=== PATIENT | female | born 1945 | race Caucasian/White ===

== ENCOUNTER → 2018-03-26 | Outpatient (CLI) | payer MEDICARE ==
--- NOTE | 2018-03-26 15:07 | CT ---
EXAM DESCRIPTION: Abdomen/Pelvis w/wo Contrast CLINICAL HISTORY: 72 years Female, ABD PN COMPARISON: None available. TECHNIQUE: Contiguous 3 mm axial images were obtained from the lung bases to the level of the proximal femora before and after the administration of intravenous contrast. Sagittal and coronal reconstructions were reviewed. FINDINGS: THORAX: The imaged lower thorax demonstrates no gross abnormality. LIVER: A simple cyst is noted at the junction of hepatic segments 4 and 8. The liver otherwise appears normal. GALLBLADDER: Surgically absent. PANCREAS: Appears normal with no cystic or solid lesions. SPLEEN: Normal ADRENAL GLANDS: Normal with no nodules or masses. KIDNEYS: Both kidneys enhance symmetrically with no hydronephrosis or nephrolithiasis or perinephric fluid collections. No focal masses are identified. The visualized ureters appear grossly unremarkable. STOMACH: The stomach is well-distended with no gross abnormality. SMALL BOWEL: The small bowel loops demonstrate variable degrees of distention with no abnormal dilatation or other signs to suggest bowel obstruction. LARGE BOWEL: Moderate to large amount of fecal material is noted, representing constipation. No evidence of free intraperitoneal air or fluid. RETROPERITONEUM: The abdominal aorta is nonaneurysmal with moderate atherosclerosis. The inferior vena cava is normal in size and caliber. No abnormally enlarged retroperitoneal lymph nodes are identified. URINARY BLADDER: The urinary bladder is mildly distended with no gross abnormality. The uterus and ovaries are surgically absent. ADDITIONAL FINDINGS: There is diastasis of the rectus sheath with herniation of colon. However no evidence of bowel obstruction. BONES: Mild degenerative changes are identified in the visualized bones.No evidence of osteophytic or osteoblastic lesions. IMPRESSION: 1. Constipation. 2. No acute process is identified within the abdomen and pelvis. This exam was performed according to our departmental dose-optimization program, which includes automated exposure control, adjustment of the mA and/or kV according to patient size and/or use of iterative reconstruction technique. Electronically signed by: Cristela Rhodes MD 03/26/2018 3:05 PM CDT
== END ==
LOC: LAB.O 11:16
PROVIDERS: ATTEND General Practice
DX: R10.9 Unspecified abdominal pain (principal); K59.00 Constipation, unspecified

== ENCOUNTER 2019-09-15 14:27 | Inpatient (IN) | payer MEDICARE ==
--- NOTE | 2019-09-15 14:39 | ED.PDOC ---
History of Present Illness - General Chief Complaint: Neuro Symptoms/Deficits Time Seen by Provider: 09/15/19 14:38 - History of Present Illness Initial Comments: 74-year-old female on plavix, referred to the ED by clinic today after concern for a reported transient episode of right upper extremity weakness, and noted slurred speech. per friend at the bedside, she found pt on the floor this morning, and notes multiple falls over the last several weeks. pt states she went to clinic to followup on her R thumb pain, which has reported neg xrays but contniue to hurt. she attributes the speech change to her missing dentures, dry mouth. she denies any current focal symptoms at this time, wants to go home but is willing to have eval due to concern of her physician and friend. Allergies/Adverse Reactions: Allergies Penicillins Allergy (Intermediate, Verified 09/15/19 15:36) Codeine Allergy (Verified 10/09/13 09:25) Home Medications: Ambulatory Orders Gabapentin 600 mg PO TID 10/09/13 Levothyroxine Sodium [Synthroid] 150 mcg PO DAILY 10/09/13 Amlodipine Besylate 5 mg PO DAILY 09/15/19 Aspirin [Aspirin Adult Low Dose] 81 mg PO DAILY 09/15/19 Atorvastatin Calcium [Lipitor] 40 mg PO BEDTIME 09/15/19 Carvedilol 12.5 mg PO BID 09/15/19 Clopidogrel Bisulfate [Plavix] 75 mg PO QD 09/15/19 Diazepam [Valium] 5 mg PO BEDTIME 09/15/19 Furosemide [Lasix] 20 mg PO DAILY 09/15/19 Glipizide [Glipizide Xl] 2.5 mg PO DAILY 09/15/19 Losartan Potassium 100 mg PO DAILY 09/15/19 Mirtazapine [Remeron] 15 mg PO BEDTIME 09/15/19 Nitroglycerin 0.4 mg Tab [Nitrostat] 0.4 mg SL PRN 09/15/19 Nitroglycerin Patch 0.4 mg/Hr [Nitro-Dur PATCH 0.4 mg/hour] 0.4 mg TOP QD 09/15/19 Potassium Chloride [K-Tab] 10 meq PO DAILY 09/15/19 Sitagliptin Phosphate [Januvia] 100 mg PO DAILY 09/15/19 Tramadol HCl 50 mg PO PRN 09/15/19 Review of Systems - Review of Systems Review of Systems: 09/15/19 15:31 General: Denies generalized weakness, fever, arthralgia/myalgia HEENT: Denies sore throat, rhinorrhea Cardiovascular: Denies chest pain, palpitations Respiratory: Denies SOB, cough Gastrointestinal: Denies abdominal pain, vomiting, diarrhea : Denies dysuria, frequency Musculoskeletal: Denies extremity pain, extremity swelling Integument: Denies rash, itching Neuro: Denies focal weakness or numbness. does note a transient episode of numbness to arm, unsure of the weakness. Psych: Denies depression, hallucinations. Past Medical History (General) - Patient Medical History Hx Seizures: No Hx Stroke: No Hx Asthma: No Hx of COPD: No Hx Cardiac Disorders: Yes Hx Congestive Heart Failure: No Hx Pacemaker: No Hx Hypertension: Yes Hx Diabetes: No Hx MRSA: No - Social History Hx Alcohol Use: No Hx Substance Use: No Hx Physical Abuse: No Hx Emotional Abuse: No Family Medical History - Family History Mother Living Status: Hx Family;Other: suicide Physical Exam - Physical Exam Comments: General Appearance: Patient is awake and alert. Skin: Warm and dry. No diaphoresis. No rash or other lesions. Head: Normocephalic/atraumatic. Eyes: PERRL, lids, conjunctiva and sclera unremarkable. EOMI intact. ENT: No nasal discharge. Oropharynx. Without erythema, exudate, lesions. dry mucous membranes. speech is slightly thickened, which seemed to improve after a drink of water. Neck: Supple. No LAD. No tenderness. No JVD noted. Respiratory: Normal rate and effort. Breath sounds clear bilaterally. Cardiovascular: Regular rate. Heart sounds normal. No murmur. GI: Abdomen soft, non-distended and non-tender. No rebound/guarding. Bowel sounds normal. Back: No tenderness Musculoskeletal: Extremities- Normal range of motion. No effusion, cyanosis, edema. she has tenderness w/ forced abduction, extension of thumb on R. Neurological: Alert. No facial palsy. Speech clear. Gag intact. No motor deficit, str symmetric. No sensory deficit. Progress - Progress Progress: 09/15/19 16:18 screening labs have returned w elev BUN/Cr. spoke w/ referring MDs office, two weeks ago had BUN/Cr 21/1.[address]/CXR reassuring, have given fluid bolus, will plan maint fluid, UA when able. d/w patient, she is agreeable. d/w admitting service, given extent of renal injury, recommends full admission. - Results/Orders Results/Orders: Vital Signs - 24 hr 09/15/19 09/15/19 14:42 15:30 Temperature 97.3 F L Pulse Rate [ 63 58 L right brachial] Respiratory 18 16 Rate Blood Pressure 90/55 122/82 [right brachial ] O2 Sat by Pulse 94 L 94 L Oximetry 09/15/19 14:59 Telemetry .ONCE Sodium Chloride 0.9% (Flush) [Saline Flush Syringe] 10 ml IV PRN PRN EKG Stat Pulse Ox Stat 09/15/19 15:00 EKG Assessment ONCE Pulse Oximetry Assessment DAILY 09/15/19 16:24 ED Intent to Admit Routine Laboratory Results - last 24 hr 09/15/19 15:13 WBC 5.7 RBC 3.68 L Hgb 10.5 L Hct 32.7 L MCV 88.8 MCH 28.5 MCHC 32.1 L RDW 15.9 H Plt Count 179 MPV 9.1 Absolute Neuts (auto) 3.70 Absolute Lymphs (auto) 1.50 Absolute Monos (auto) 0.30 Absolute Eos (auto) 0.10 Absolute Basos (auto) 0.00 Neutrophils % 64.9 Lymphocytes % 26.4 Monocytes % 6.1 Eosinophils % 2.1 Basophils % 0.5 PT 10.0 INR 1.00 PTT (SP) 23.5 Sodium 141 Potassium 4.0 Chloride 102 Carbon Dioxide 23 Anion Gap 20.0 H BUN 42 H Creatinine 2.37 H BUN/Creatinine Ratio 17.7 Random Glucose 312 H Serum Osmolality 303.6 H Calcium 9.1 Magnesium 2.1 Creatine Kinase 42 CK-MB (CK-2) 1.0 CK-MB (CK-2) % Not Reportable Troponin I < 0.02 B-Natriuretic Peptide 5.5 CT Head, no acute abnl CXR no acute abnl - EKG/XRAY/CT EKG: Sinus - rate 62, nonspecific ST T wave Chg Comments: nl axis, intervals CT Ordered: Yes - head, negative - Consult/PCP Consult/PCP: Dr. Haywood Consult Reason/Comments: discussed baseline renal function Departure - Departure Clinical Impression: Acute kidney injury, Fall at home Time of Disposition: 16:10 Disposition: Admit Patient Condition: Fair Referrals: Phil Haywood MD [Primary Care Provider] - 1-2 Weeks Home Medications: Ambulatory Orders Gabapentin 600 mg PO TID 10/09/13 Levothyroxine Sodium [Synthroid] 150 mcg PO DAILY 10/09/13 Amlodipine Besylate 5 mg PO DAILY 09/15/19 Aspirin [Aspirin Adult Low Dose] 81 mg PO DAILY 09/15/19 Atorvastatin Calcium [Lipitor] 40 mg PO BEDTIME 09/15/19 Carvedilol 12.5 mg PO BID 09/15/19 Clopidogrel Bisulfate [Plavix] 75 mg PO QD 09/15/19 Diazepam [Valium] 5 mg PO BEDTIME 09/15/19 Furosemide [Lasix] 20 mg PO DAILY 09/15/19 Glipizide [Glipizide Xl] 2.5 mg PO DAILY 09/15/19 Losartan Potassium 100 mg PO DAILY 09/15/19 Mirtazapine [Remeron] 15 mg PO BEDTIME 09/15/19 Nitroglycerin 0.4 mg Tab [Nitrostat] 0.4 mg SL PRN 09/15/19 Nitroglycerin Patch 0.4 mg/Hr [Nitro-Dur PATCH 0.4 mg/hour] 0.4 mg TOP QD 09/15/19 Potassium Chloride [K-Tab] 10 meq PO DAILY 09/15/19 Sitagliptin Phosphate [Januvia] 100 mg PO DAILY 09/15/19 Tramadol HCl 50 mg PO PRN 09/15/19 Comments: Waldemar Babcock MD Emergency Medicine #[id number] Decision To Admit - Decistion To Admit Decision to Admit Reason: Admit from ER - Acute Kidney Injury Decision to Admit Date: 09/15/19 Decision to Admit Time: 16:10
[2019-09-15] MEDS ORDERED: SODIUM CHLORIDE 0.9% (FLUSH) 10 ML SYG IV PRN ×2 (14:59→18:02)
[2019-09-15] MEDS ORDERED: SODIUM CHLORIDE 0.9% 500ML 500 ML IVS ONE (15:02)
--- NOTE | 2019-09-15 15:25 | RAD ---
EXAM DESCRIPTION: Chest,1 View: CR/DR/XR. CLINICAL HISTORY: 74 years Female falls, dizzy COMPARISON: One view portable chest September 2013. TECHNIQUE: ONE VIEW PORTABLE. AP 1514 hours, upright position. FINDINGS: Moderate lung expansion. Stable densities in the bilateral bases. No new consolidation. No pleural effusion or pneumothorax. Cardiopulmonary vascular structures and mediastinal silhouette are unremarkable. Large body habitus. IMPRESSION: Mild to moderate lung volumes with stable densities in the left lung base since September 2013. No radiographic evidence of acute cardiopulmonary disease. Electronically signed by: Andrew Vasquez MD 09/15/2019 3:23 PM [facility]
--- NOTE | 2019-09-15 15:39 | CT ---
EXAM DESCRIPTION: Head CLINICAL HISTORY: multiple falls, on plavix, brief RUE, speech norman COMPARISON: None available TECHNIQUE: Noncontrast head CT was performed with routine protocol. FINDINGS: Normal benson-white matter differentiation. Ventricles and sulci are normal for age. No high density hemorrhage, focal edema or shift of the midline. No sulcal effacement. Normal orbital contents. Basilar cisterns appear clear. Intact calvarium with no fracture or lytic lesion. Normal aeration of tympanic cavities and mastoid air cells. No fluid levels in the paranasal sinuses. Skull base appears intact. Symmetrical internal auditory canals. IMPRESSION: No acute intracranial pathologic process. This exam was performed according to our departmental dose-optimization program, which includes automated exposure control, adjustment of the mA and/or kV according to patient size and/or use of iterative reconstruction technique. Total DLP equals 859.97 mGycm. Electronically signed by: Rj Vann MD 09/15/2019 3:37 PM [facility]
--- NOTE | 2019-09-15 17:01 | HP ---
SUPERVISING PHYSICIAN: Catrachito Bermudez MD CHIEF COMPLAINT: Neuro symptoms. HISTORY OF PRESENT ILLNESS: This is a 74-year-old patient who lives in [place]. She had been having some numbness in her right thumb and right index finger. She had seen her primary care physician, Dr. Haywood, about that. He told her to come back if she did not have any improvement. Today, she was taking a bath getting ready for her appointment and after she got out, she said she slipped to the floor. She does not think she passed out, but she does not remember much of the fall, although she did deny any traumatic injury or hitting her head. She called her friend and while they were en route to [place], she called Dr. Haywood's office and Dr. Haywood recommended she go to the Emergency Room. In the ER, initially they thought she was having stroke-like symptoms, but she did not have any weakness on either side. There was no slurred speech although she did have a very dry oropharynx and oral mucous membranes. Her initial vital signs were temperature 97.3, heart rate 63, blood pressure 90/55, respiratory rate 18, O2 saturation 94% on room air. Labs showed WBC 5.7, hemoglobin 10.5, hematocrit 32.7. Sodium 141, potassium 4, chloride 102, cardiac 23, anion gap 20, BUN 42, creatinine 2.37. Her baseline creatinine is 0.9 to 1. Glucose 291. Serum osmolality 303.6. BNP 5.5. She was given some fluids and her blood pressure improved to 122/82. Head CT was done and showed no acute intracranial pathologic process. Chest x-ray showed mild to moderate lung volume with stable densities in the left lung base from September 2013. No radiographic evidence of acute cardiopulmonary disease. I was called for admission for acute kidney injury with severe dehydration. PAST MEDICAL HISTORY: 1. Hypertension. 2. Hypothyroidism. 3. Coronary artery disease. 4. Hyperlipidemia. 5. Diabetes mellitus. 6. Breast cancer status post bilateral mastectomy. PAST SURGICAL HISTORY: 1. Cardiac stents. 2. Bowel resection times 3. 3. Cholecystectomy. 4. Hysterectomy. 5. Bilateral knee replacements. 6. Bilateral mastectomy. CURRENT MEDICATIONS: Per the EMR and awaiting verification. ALLERGIES: CODEINE, PENICILLIN. SOCIAL HISTORY: The patient denies any tobacco, alcohol or illicit drug use. REVIEW OF SYSTEMS: GENERAL: Negative for fever, fatigue or weight changes. HEENT: Negative for sinus symptoms, ear pain, vision changes or sore throat. RESPIRATORY: Negative for wheezing, coughing or shortness of breath. CARDIAC: Positive for substernal chest pain that does not radiate and is not exacerbated by any exertion. Negative for palpitations or tachycardia. GASTROINTESTINAL: Positive for some nausea. Negative for vomiting, diarrhea, constipation. GENITOURINARY: Negative for hematuria, dysuria or polyuria. SKIN: Negative for lesions or rashes. NEUROLOGIC: Positive for dizziness and history of some vertigo for many years. Negative for headache or seizures. PHYSICAL EXAMINATION: VITAL SIGNS: Temperature 98.4. Heart rate 59. Blood pressure 126/84. Respiratory rate 16. O2 saturation 96% on room air. GENERAL: This is a 74-year-old female patient lying in her hospital bed. She is in no acute distress. HEENT: Normocephalic, atraumatic. Pupils are equal and reactive. Oropharynx is clear. Oral mucous membranes are very dry. NECK: Supple without mass. RESPIRATORY: Essentially clear to auscultation bilaterally. CHEST: There is equal rise and fall of the chest with inspiration and expiration. CARDIOVASCULAR: Regular rate and rhythm. GASTROINTESTINAL: Abdomen is soft, nondistended, nontender. Bowel sounds are positive. EXTREMITIES: No cyanosis, clubbing or edema. NEUROLOGIC: Awake, alert and oriented times three. Cranial nerves II-XII are grossly intact as examined. There are no focal deficits. SKIN: Warm and dry. LABORATORY: Labs and films are as per history of present illness. IMPRESSION: 1. Acute kidney injury. Her admitting creatinine was 2.37. Her baseline creatinine is about 0.9. 2. Dehydration. 3. Questionable altered mental status. 4. Same-level fall after her bath with no obvious trauma. She has a history of vertigo and questionable loss of consciousness. 5. Chest pain, rule out acute coronary syndrome. She does have a history of coronary artery disease with stents. She did not complain of chest pain until she had come to the Floor. 6. History of vertigo. 7. Coronary artery disease with stents. 8. Hypertension. 9. History of breast cancer with bilateral mastectomy. 10. Diabetes mellitus, type 2, on oral medications. PLAN: The patient will be admitted to the hospital. She will receive fluids overnight and I will recheck her labs in the morning. Hopefully, the extra fluids will help with the dehydration. We will also do neuro checks. At this point, she has had no x-rays, but there is no obvious trauma and we will continue to monitor that. I have also begun the chest pain guidelines to rule out any acute coronary syndrome. Her initial cardiac enzymes have been negative. She will be on fall precautions. We will restart her home medications as soon as they are verified. I will hold on her losartan due to her kidney injury. I will also start blood sugar checks a.c. and h.s. with short-acting insulin coverage. She will have Lovenox for DVT prophylaxis. We will continue to monitor the patient closely and follow as needed. #[id number] [facility]
[2019-09-15] MEDS ORDERED: SODIUM CHLORIDE 0.9% 1000ML 1,000 ML IVS PRN (17:41)
[2019-09-15] MEDS ORDERED: ACETAMINOPHEN 325 MG TAB PO PRN (18:02)
[2019-09-15] MEDS ORDERED: ONDANSETRON INJ 4 MG/2 ML VIAL IV PRN (18:02)
[2019-09-15] MEDS ORDERED: SODIUM CHLORIDE 0.45% 1000ML 1,000 ML IVS ONE (18:02)
[2019-09-15] MEDS ORDERED: DEXTROSE 50% 25 GM/50 ML SYG IV PRN (18:09)
[2019-09-15] MEDS ORDERED: GLUCAGON INJ 1 MG VIAL SUBCU PRN (18:09)
[2019-09-15] MEDS ORDERED: traMADol HCL 50 MG TAB PO PRN (18:30)
[2019-09-15] MEDS ORDERED: IV SET AND CAP CHANGE INJ INJ SCH (18:30)
[2019-09-15] MEDS ORDERED: ATORVASTATIN 20 MG TAB PO ONE (19:19)
[2019-09-15] MEDS ORDERED: MORPHINE SULFATE INJ 10 MG/ML VIAL IV PRN (19:34)
[2019-09-15] MEDS ORDERED: NITROGLYCERIN 0.4 MG 25 EA TAB SL PRN (19:34)
[2019-09-15] MEDS: CARVEDILOL 12.5 MG TAB PO SCH (20:35)
[2019-09-15] MEDS: GABAPENTIN 300 MG CAP PO SCH (20:35)
[2019-09-15] MEDS: MIRTAZAPINE 15 MG TAB PO SCH (20:36)
[2019-09-15] MEDS: ENOXAPARIN SODIUM 30 MG/0.3 ML SYG SUBCU SCH (20:37)
[2019-09-15] MEDS: SODIUM CHLORIDE 0.9% (FLUSH) 10 ML SYG IV SCH (20:37)
[2019-09-15] MEDS: diazePAM 5 MG TAB PO SCH (20:37)
[2019-09-15] MEDS ORDERED: NON-FORMULARY MEDICATION 1 EA MIS (Atorvastatin Calcium [Lipitor] 40 MG) PO SCH (21:00)
[2019-09-15] MEDS: INSULIN LISPRO 100 UNITS/ML PEN SUBCU SCH (21:04)
[2019-09-16] MEDS ORDERED: LEVOTHYROXINE SODIUM 0.075 MG TAB ONE ×2 (04:46→19:57)
[2019-09-16] MEDS ORDERED: NON-FORMULARY MEDICATION 1 EA MIS (Levothyroxine Sodium [Synthroid] 150 MCG) PO SCH (06:30)
[2019-09-16] MEDS ORDERED: KCL 20MEQ/0.45% NS 1,000 ML IVS ONE (08:01)
[2019-09-16] MEDS ORDERED: MORPHINE SULFATE INJ 10 MG/ML VIAL IV PRN (08:02)
[2019-09-16] MEDS: INSULIN LISPRO 100 UNITS/ML PEN SUBCU SCH ×4 (08:45→20:47)
[2019-09-16] MEDS ORDERED: NON-FORMULARY MEDICATION 1 EA MIS (Sitagliptin Phosphate [Januvia] 100 MG) PO SCH (09:00)
[2019-09-16] MEDS ORDERED: SITagliptin 50 MG TAB PO ONE (09:26)
[2019-09-16] MEDS: CLOPIDOGREL 75 MG TAB PO SCH ×2 (09:42→09:43)
[2019-09-16] MEDS: amLODIPine BESYLATE 5 MG TAB PO SCH (09:42)
[2019-09-16] MEDS: CARVEDILOL 12.5 MG TAB PO SCH ×2 (09:43→20:16)
[2019-09-16] MEDS: GABAPENTIN 300 MG CAP PO SCH ×3 (09:43→20:16)
[2019-09-16] MEDS: ASPIRIN (ENTERIC COATED) 81 MG TAB PO SCH (09:43)
[2019-09-16] MEDS: POTASSIUM CHLORIDE 10 MEQ TAB PO SCH (09:43)
[2019-09-16] MEDS: NITROGLYCERIN 0.4 MG/HR PATCH TOP SCH ×2 (09:44)
[2019-09-16] MEDS: SODIUM CHLORIDE 0.9% (FLUSH) 10 ML SYG IV SCH ×2 (09:45→20:16)
--- NOTE | 2019-09-16 10:26 | PN ---
SUPERVISING PHYSICIAN: Catrachito Bermudez MD DATE: 09/16/19 SUBJECTIVE: The patient is sitting up in bed. She is tearful. Her daughter is trying to convince her to go to an assisted living or rehab facility. She says she gets very anxious, but she has not had any chest pain, shortness of breath, nausea or vomiting. She denies headaches or dizziness. OBJECTIVE: VITAL SIGNS: Temperature 97.6. Heart rate 60. Blood pressure 105/52. Respiratory rate 15. O2 saturation 95% on room air. RESPIRATORY: Essentially clear to auscultation bilaterally. CARDIAC: Regular rate and rhythm. GASTROINTESTINAL: Abdomen is soft, nondistended, nontender. Bowel sounds are positive. NEUROLOGIC: Awake, alert and oriented times three. LABORATORY: CBC is basically unremarkable. Serial cardiac enzymes are all negative. Electrolytes are within normal limits. Creatinine is improved to 1.66. BUN is 39. Triglycerides 178, LDL 90, HDL 32. All other labs and films have been reviewed via the EMR. ASSESSMENT: 1. Acute kidney injury. Her admitting creatinine was 2.37. Her baseline creatinine is about 0.9. Today, it is 1.66. 2. Dehydration. 3. Questionable altered mental status. 4. Same-level fall after her bath with no obvious trauma. She has a history of vertigo and questionable loss of consciousness. 5. Chest pain, rule out acute coronary syndrome. She does have a history of coronary artery disease with stents. She did not complain of chest pain until she had come to the Floor. 6. History of vertigo. 7. Coronary artery disease with stents. 8. Hypertension. 9. History of breast cancer with bilateral mastectomy. 10. Diabetes mellitus, type 2, on oral medications. PLAN: We will continue present supportive care. I will give her some additional fluids overnight and hopefully her creatinine will improve tomorrow. Echocardiogram is still pending. I discontinued her morphine. I have given her some extra Valium for her anxiety. We will repeat her lab in the morning. At this point, I have also held her losartan as I do not know if that is contributing to her kidney injury. Depending on how she does off of it as well as her blood pressure, it may be beneficial to discontinue that for now. I will review her lab in the morning as well as blood pressure and decide at that time. Otherwise, we will continue to monitor the patient closely and follow as needed. #[id number] [facility]
[2019-09-16] MEDS: diazePAM 5 MG TAB PO PRN (11:38)
[2019-09-16] MEDS: MIRTAZAPINE 15 MG TAB PO SCH (20:16)
[2019-09-16] MEDS: diazePAM 5 MG TAB PO SCH (20:16)
[2019-09-16] MEDS: ENOXAPARIN SODIUM 30 MG/0.3 ML SYG SUBCU SCH (20:16)
[2019-09-16] MEDS ORDERED: ATORVASTATIN 20 MG TAB PO SCH (21:00)
[2019-09-17] MEDS ORDERED: LEVOTHYROXINE SODIUM 0.075 MG TAB PO SCH ×2 (06:30)
[2019-09-17] MEDS: INSULIN LISPRO 100 UNITS/ML PEN SUBCU SCH (07:37)
[2019-09-17] MEDS: POTASSIUM CHLORIDE 10 MEQ TAB PO SCH (08:30)
[2019-09-17] MEDS: CARVEDILOL 12.5 MG TAB PO SCH (08:30)
[2019-09-17] MEDS: SODIUM CHLORIDE 0.9% (FLUSH) 10 ML SYG IV SCH (08:30)
[2019-09-17] MEDS: GABAPENTIN 300 MG CAP PO SCH (08:30)
[2019-09-17] MEDS: diazePAM 5 MG TAB PO PRN (08:30)
[2019-09-17] MEDS: ASPIRIN (ENTERIC COATED) 81 MG TAB PO SCH (08:30)
[2019-09-17] MEDS: CLOPIDOGREL 75 MG TAB PO SCH (08:31)
[2019-09-17] MEDS: amLODIPine BESYLATE 5 MG TAB PO SCH (08:31)
[2019-09-17] MEDS: NITROGLYCERIN 0.4 MG/HR PATCH TOP SCH (08:31)
[2019-09-17] MEDS ORDERED: SITagliptin 50 MG TAB PO SCH (09:00)
[2019-09-17 10:33] VITALS: BP 158/75; TEMP 98.4; O2SAT 97
--- NOTE | 2019-09-17 15:08 | DS ---
SUPERVISING PHYSICIAN: Catrachito Bermudez MD ADMISSION DIAGNOSES: 1. Acute kidney injury. Her admitting creatinine was 2.37. Her baseline creatinine is about 0.9. 2. Dehydration. 3. Questionable altered mental status. 4. Same-level fall after her bath with no obvious trauma. She has a history of vertigo and questionable loss of consciousness. 5. Chest pain, rule out acute coronary syndrome. She does have a history of coronary artery disease with stents. She did not complain of chest pain until she had come to the Floor. 6. History of vertigo. 7. Coronary artery disease with stents. 8. Hypertension. 9. History of breast cancer with bilateral mastectomy. 10. Diabetes mellitus, type 2, on oral medications. DISCHARGE DIAGNOSES: 1. Acute kidney injury with admitting creatinine of 2.37, now near baseline levels. 2. Dehydration resolved with fluids. 3. Altered mental status secondary to #1, improved with fluids, likely some exacerbation from chronic medications including Valium. 4. Chest pain, rule out with no acute findings with ejection fraction of approximately 55% on echocardiogram and all workup being negative for any acute ischemia or injury pattern on EKG and labs. 5. History of vertigo. 6. Coronary artery disease with stents. 7. Hypertension. 8. History of breast cancer with bilateral mastectomy. 9. Diabetes mellitus, type 2, on oral medications. REASON FOR HOSPITALIZATION: This is a 74-year-old patient who lives in [place]. She had been having some numbness in her right thumb and right index finger. She had seen her primary care physician, Dr. Haywood, about that. He told her to come back if she did not have any improvement. Today, she was taking a bath getting ready for her appointment and after she got out, she said she slipped to the floor. She does not think she passed out, but she does not remember much of the fall, although she did deny any traumatic injury or hitting her head. She called her friend and while they were en route to [place], she called Dr. Haywood's office and Dr. Haywood recommended she go to the Emergency Room. In the ER, initially they thought she was having stroke-like symptoms, but she did not have any weakness on either side. There was no slurred speech although she did have a very dry oropharynx and oral mucous membranes. Her initial vital signs were temperature 97.3, heart rate 63, blood pressure 90/55, respiratory rate 18, O2 saturation 94% on room air. Labs showed WBC 5.7, hemoglobin 10.5, hematocrit 32.7. Sodium 141, potassium 4, chloride 102, cardiac 23, anion gap 20, BUN 42, creatinine 2.37. Her baseline creatinine is 0.9 to 1. Glucose 291. Serum osmolality 303.6. BNP 5.5. She was given some fluids and her blood pressure improved to 122/82. Head CT was done and showed no acute intracranial pathologic process. Chest x-ray showed mild to moderate lung volume with stable densities in the left lung base from September 2013. No radiographic evidence of acute cardiopulmonary disease. I was called for admission for acute kidney injury with severe dehydration. LABORATORY: White count on admission 5,700, on discharge was 5,000 with a hemoglobin being stable at 11 and hematocrit 34.3 with platelet count of 195,000. Discharge with no left shift noted. Coagulation studies showed normal PT/PTT. Chemistries on discharge showed electrolytes to be within normal limits. Creatinine was down to 1.23. Blood sugars ranged between 169 and 212. Magnesium was 2.3 at discharge, calcium 9.5, troponin less than 0.02 both on admission and repeat after admission prior to discharge. Initial creatinine on admission was 1.66. Urinalysis was within normal limits. RADIOLOGY: She had a chest x-ray and CT of the head without contrast. Chest x- ray, single view, in the Emergency Room showed mild to moderate lung volumes with stable density in the left lung base since September 2013. CT of the head without contrast per radiology interpretation was without any acute findings. HOSPITAL COURSE: Ms. Bernard was admitted for noted above admission diagnoses to include chest pain which was ruled out. She had no changes in her EKG. She had no recurrence of chest pain. She was given fluids which did help improve her creatinine. Her mental status was back to baseline levels. After discussion with her on discharge plan, she had requested that I write her a prescription for Valium because she said she did not have any at home. I did do a review of the [place] [facility] and noted that she had had a prescription for Valium 5 mg filled on 08/27/19 written on 08/04/[address] Haywood with one refill. Count was 45. I explained to her that I could not write her a prescription for Valium and she went on to explain that she did have enough at home in a prescription form but did not have the funds to fill the second prescription filled. She understood that I was unable to write her a prescription and that she sold be discharged and was understanding. She was in agreement to the plan of care and was found to be stable enough at discharge to continue with outpatient management. DISCHARGE PHYSICAL ASSESSMENT: VITAL SIGNS: Temperature 98.4, pulse 76, blood pressure 158/75, respirations 19, oxygen saturation 97% on room air. GENERAL: The patient was resting comfortably. She was alert. CHEST: Clear to auscultation, HEART: Regular rate and rhythm. ABDOMEN: Soft, non-tender, positive bowel sound. EXTREMITIES: Without any edema. NEUROLOGIC: She is alert and oriented x3. PLAN: Ms. Bernard was discharged on 09/17/19 with instructions to followup with Dr. Haywood and to call his office on Saturday. She is to resume her home medications as instructed. Diet was to resume her normal diet as tolerated. Activities were to increase as tolerated. No new prescriptions were prescribed on discharge. Again, she did request a prescription for Valium but in review of the [place] [facility], showed that she had just had a prescription filled as noted above. The patient was in agreement to plan of care on discharge. DISPOSITION: The patient was discharged home to the care of family members. CONDITION ON DISCHARGE: Stable and improved. #[id number] MTDD
== END 2019-09-17 11:29 | disposition home or self-care (01) | DRG 684 ==
LOC: ER 14:27 → MS 16:59 → OBSVTOIN 16:59
PROVIDERS: ADMIT Nurse Practitioner Acute Care; ATTEND Nurse Practitioner Family
DX: N17.9 Acute kidney failure, unspecified (principal); E86.0 Dehydration; R07.9 Chest pain, unspecified; I25.10 Atherosclerotic heart disease of native coronary artery without angina pectoris; I10 Essential (primary) hypertension; E11.9 Type 2 diabetes mellitus without complications; R41.82 Altered mental status, unspecified; T42.4X5A Adverse effect of benzodiazepines, initial encounter; E03.9 Hypothyroidism, unspecified; E78.5 Hyperlipidemia, unspecified; W18.30XA Fall on same level, unspecified, initial encounter; Y93.E8 Activity, other personal hygiene; Y92.002 Bathroom of unspecified non-institutional (private) residence as the place of occurrence of the external cause; Z90.49 Acquired absence of other specified parts of digestive tract; Z96.653 Presence of artificial knee joint, bilateral; Z88.0 Allergy status to penicillin; Z88.5 Allergy status to narcotic agent; Z85.3 Personal history of malignant neoplasm of breast; Z95.5 Presence of coronary angioplasty implant and graft; Z79.84 Long term (current) use of oral hypoglycemic drugs; Z79.02 Long term (current) use of antithrombotics/antiplatelets; Z79.82 Long term (current) use of aspirin; Z79.891 Long term (current) use of opiate analgesic; Z79.899 Other long term (current) drug therapy

== ENCOUNTER 2019-09-22 17:55 | Observation (INO) | payer MEDICARE ==
--- NOTE | 2019-09-22 18:09 | ED.PDOC ---
History of Present Illness - General Stated Complaint: abdominal pain, diarrhea, chest pain Time Seen by Provider: 09/22/19 18:02 Information Source: patient, RN notes reviewed, Vital Signs reviewed, EMS - History of Present Illness Initial Comments: this is patient with history of high blood pressure, thyoid, diabetes. Patient was brought here by ems, after having a bout of diarrhea while She was eating at a chicken restaurant. Patient went to the clinic where they noticed the She was hypotensive, the called 911 and EMS brought patient here. Patient stated 6/10 abdominal pain, she feels bloated and also stated that while she was eating She did have some chest pain, sharp with some shortness of breath. Patient stated that the the diarrhea was loose and no evidence of blood patient stated the she just got stents placed in her heart the cardiac stents were placed at [place] on January of 2019 Abdominal Pain Onset Location: generalized abdomen Pain Radiation: chest Quality: sharpness Timing/Duration: 1 hour Associated Symptoms: diarrhea Review of Systems - Review of Systems Constitutional: States: no symptoms reported EENTM: States: no symptoms reported Respiratory: States: no symptoms reported Cardiology: States: chest pain Gastrointestinal/Abdominal: States: abdominal pain, diarrhea. Denies: nausea, vomiting Genitourinary: States: no symptoms reported Musculoskeletal: States: no symptoms reported Skin: States: no symptoms reported Neurological: States: no symptoms reported Endocrine: States: no symptoms reported Hematologic/Lymphatic: States: no symptoms reported Past Medical History (General) - Patient Medical History Hx Seizures: No Hx Stroke: No Hx Asthma: No Hx of COPD: No Hx Cardiac Disorders: Yes Hx Congestive Heart Failure: No Hx Pacemaker: No Hx Hypertension: Yes Hx Diabetes: Yes Hx Cancer: Yes Hx MRSA: No - Social History Hx Alcohol Use: No Hx Substance Use: No Hx Physical Abuse: No Hx Emotional Abuse: No Family Medical History - Family History Mother Living Status: Hx Family;Other: suicide Physical Exam - Physical Exam General Appearance: Alert, Other - in ain and uncorfortable Eyes, Ears, Nose, Throat Exam: PERRL/EOMI, normal ENT inspection, TMs normal Neck: non-tender, full range of motion, supple, normal inspection Respiratory: chest non-tender, lungs clear, normal breath sounds, no respiratory distress, no accessory muscle use Cardiovascular/Chest: normal peripheral pulses, regular rate, rhythm, no edema, no gallop, no JVD, no murmur Peripheral Pulses: Thready Gastrointestinal/Abdominal: tenderness, other - diffuse abodminal pain with mild distention, no acute abdomen Extremity: normal range of motion, non-tender, normal inspection Neurologic: script worker II-XII nml as tested, no motor/sensory deficits, alert, normal mood/affect, oriented x 3 Skin Exam: normal color Progress - Progress Progress: 09/22/19 18:11 this is a patient that presents with acute onset abdominal pain, diarrhea and chest pain. patient was hypotensive upor arrival but could be due to the diarrhea episode that she had prior to arrival. Patient is not altered, willl get cbc. cmp, lipase, ekg, u/a, troponins and ct to rule out cholitis, diverticulitis and or perforation 09/22/19 18:14 Patient ekg showed normal sinus rythm, heart rate at 61, inverted t waves noticed in lead v5, no st elevation 09/22/19 20:35 because patient was hypotensive even thought she had a peripheral line I attempted to put a central line, i tried an internal jugular central catheter in both sides of patient neck but he wire kept getting kinked. i was unsuccessful in the attempts. patient bp improved to 80 and patient is resting comfortable, 09/22/19 22:07 i discussed case with the hospitalist and he stated the if patient can hold her BP in the 80's sistolic for an additional hour then he would take her in the floor 09/22/19 23:19 patient blood pressue have remained about 80 and patient is looking a lot better and actually walking around without any difficulties patient will be admitted to the hospital for chest pain, abdominal pain and di arrhea patient didnt show any acute abnormalities Departure - Departure Clinical Impression: Dehydration Abdominal pain Qualifiers: Abdominal location: generalized Qualified Code(s): R10.84 - Generalized abdominal pain Chest pain Qualifiers: Chest pain type: unspecified Qualified Code(s): R07.9 - Chest pain, unspecified Diarrhea Qualifiers: Diarrhea type: unspecified type Qualified Code(s): R19.7 - Diarrhea, unspecified Disposition: Admit Patient Condition: Good Referrals: Phil Haywood MD [Primary Care Provider] - 1-2 Weeks Home Medications: Ambulatory Orders Gabapentin 600 mg PO TID 10/09/13 Levothyroxine Sodium [Synthroid] 150 mcg PO DAILY 10/09/13 Amlodipine Besylate 5 mg PO DAILY 09/15/19 Aspirin [Aspirin Adult Low Dose] 81 mg PO DAILY 09/15/19 Atorvastatin Calcium [Lipitor] 40 mg PO BEDTIME 09/15/19 Carvedilol 12.5 mg PO BID 09/15/19 Clopidogrel Bisulfate [Plavix] 75 mg PO QD 09/15/19 Diazepam [Valium] 5 mg PO BEDTIME 09/15/19 Furosemide [Lasix] 20 mg PO DAILY 09/15/19 Glipizide [Glipizide Xl] 2.5 mg PO DAILY 09/15/19 Losartan Potassium 100 mg PO DAILY 09/15/19 Mirtazapine [Remeron] 15 mg PO BEDTIME 09/15/19 Nitroglycerin 0.4 mg Tab [Nitrostat] 0.4 mg SL PRN 09/15/19 Nitroglycerin Patch 0.4 mg/Hr [Nitro-Dur PATCH 0.4 mg/hour] 0.4 mg TOP QD 09/15/19 Potassium Chloride [K-Tab] 10 meq PO DAILY 09/15/19 Sitagliptin Phosphate [Januvia] 100 mg PO DAILY 09/15/19 Tramadol HCl 50 mg PO PRN 09/15/19 Metformin HCl [Glucophage] 1,000 mg PO BID 09/22/19 Venlafaxine HCl 75 mg PO DAILY 09/22/19
--- NOTE | 2019-09-22 18:32 | RAD ---
EXAM: Chest,1 View CLINICAL INDICATION: Chest pain COMPARISON: 09/15/2019 FINDINGS: A single view of the chest was obtained. The heart size is normal. The pulmonary vascularity is unremarkable. The lungs are clear. There is no consolidation, infiltrate, pleural effusion, or pneumothorax. IMPRESSION: No evidence of active pulmonary disease. Electronically signed by: Mark Joseph MD 09/22/2019 6:30 PM ORDER ENTRY TECHNICIAN
[2019-09-22] MEDS: ONDANSETRON INJ 4 MG/2 ML VIAL IV ONE (19:12)
[2019-09-22] MEDS: SODIUM CHLORIDE 0.9% 1000ML 1,000 ML IVS ONE ×3 (19:12→22:48)
[2019-09-22] MEDS: ASPIRIN TABLET 325 MG TAB PO ONE (20:48)
--- NOTE | 2019-09-22 21:21 | CT ---
EXAM DESCRIPTION: Abdoment/Pelvis w/o Contrast CLINICAL HISTORY: 74 years Female abdominal pain COMPARISON: None TECHNIQUE: Images were obtained in axial, sagittal, and coronal planes. No intravenous contrast was administered. This exam was performed according to our departmental dose-optimization program which includes use of Automated Exposure Control, adjustment of the mA and/or kV according to patient size and/or use of iterative reconstruction technique. FINDINGS: No abnormality involving the liver, pancreas, or adrenal glands bilaterally. Gallbladder not identified. Spleen is enlarged measuring 13.2 cm in greatest dimension. No obstructing renal or ureteral calcifications bilaterally. No hydronephrosis bilaterally. Incompletely distended bladder. Appendix not well identified however no secondary signs for appendicitis. Clips right lower abdomen thought to be related to bowel anastomosis. No bowel obstruction, perforation, or inflammation. Small right periumbilical hernia which contains nondilated bowel loops. Additional multiple small midline ventral hernias containing only mesenteric fat. Calcification abdominal aorta with no dilatation seen. No adenopathy or abnormal fluid collections seen. Dependent atelectatic change lower lungs bilaterally. No acute osseous abnormality. IMPRESSION: No acute intra-abdominal abnormality. Electronically signed by: Irene Loyd MD 09/22/2019 9:20 PM OPERATIONS INTERN
[2019-09-22] MEDS ORDERED: SODIUM CHLORIDE 0.9% (FLUSH) 10 ML SYG IV PRN (23:08)
[2019-09-23 00:24] VITALS: TEMP 97.6
[2019-09-23] MEDS: IV SET AND CAP CHANGE INJ INJ SCH (00:59)
[2019-09-23] MEDS: KCL 20 MEQ/NS 1,000 ML IVS PRN (00:59)
[2019-09-23] MEDS ORDERED: metFORMIN HCL 500 MG TAB ONE (08:48)
[2019-09-23] MEDS ORDERED: SODIUM CHL 0.9% 50ML MIN-BAG+ 50 ML IVPB ONE (08:48)
[2019-09-23] MEDS ORDERED: SITagliptin 50 MG TAB PO ONE (08:48)
[2019-09-23] MEDS ORDERED: cefTRIAXone SODIUM 1 GM VIAL ONE (08:49)
--- NOTE | 2019-09-23 08:51 | SSS ---
SUPERVISING PHYSICIAN: Geraldo Cox MD CHIEF COMPLAINT: Syncope. HISTORY OF PRESENT ILLNESS: This is a 74-year-old female who came to the Emergency Room due to a syncopal episode. She states she was eating chicken with a friend, then went to have a bowel movement which she states was solid in nature, however, the Emergency Room doctor reported it as liquid. Either before or after, she cannot remember, she had some chest pain. It was mild chest pain, but she remembers it being there. She was transported via ambulance to the Emergency Room. At that time, she was hypotensive with a systolic in the 50s. The ER physician attempted to put a central line in twice and was unsuccessful. However, she did rebound her blood pressure with 2 liters of IV fluids. She had a CT scan of the abdomen and pelvis which was negative. She had two negative troponins and EKGs did not show any acute changes. She did show elevation in BUN and creatinine, however, at 24 and 1.9, respectively. She was referred basically for monitoring for her syncopal episode as well as rehydration. This morning, her labs were rechecked. BUN and creatinine are improved at 23 and 1.54, respectively. Potassium is normal now at 4.1, whereas it was 3.1. However, this morning, her troponin was 0.11. She denies any chest pain. She recently had a stent back in May. Dr. Ellison did that in [place], so I called Dr. Ellison and he requested the patient be transferred. I discussed this with the patient and although she is reluctant, she agrees. PAST MEDICAL HISTORY: 1. Hypertension. 2. Hypothyroidism. 3. Coronary artery disease. 4. Hyperlipidemia. 5. Diabetes mellitus, type 2. 6. Breast cancer in the past. PAST SURGICAL HISTORY: 1. Bilateral mastectomy. 2. PTCA with stents times 4, most recently in May. 3. Bowel resection times 3. 4. Cholecystectomy. 5. Hysterectomy. 6. Bilateral knee replacements. MEDICATIONS: 1. Amlodipine 5 mg p.o. daily. 2. Aspirin 81 mg daily. 3. Atorvastatin 40 mg p.o. at bedtime. 4. Carvedilol 12.5 mg p.o. b.i.d. 5. Plavix 75 mg at bedtime. 6. Valium 5 mg at bedtime. 7. Lasix 20 mg p.o. daily. 8. Gabapentin 600 mg p.o. t.i.d. 9. Glipizide 2.5 mg p.o. daily. 10. Levothyroxine 150 mcg p.o. daily. 11. Losartan 100 mg p.o. daily. 12. Metformin 1000 mg p.o. b.i.d. 13. Remeron 50 mg p.o. at bedtime. 14. Nitrostat 0.4 mg sublingual p.r.n. for chest pain. 15. Nitroglycerin patch 0.4 mg topically daily. 16. Potassium chloride 10 mEq p.o. daily. 17. Januvia 100 mg p.o. daily. 18. Tramadol 50 mg p.o. every 6 hours as needed for pain. 19. Venlafaxine 75 mg p.o. daily. ALLERGIES: CODEINE, PENICILLIN. FAMILY HISTORY: Hypertension and heart disease. SOCIAL HISTORY: The patient denies smoking, drinking or illicit drugs. REVIEW OF SYSTEMS: CONSTITUTIONAL: No fever or chills. No recent weight loss or weight gain. HEENT: No headaches, vision changes, ear pain, nasal congestion or throat pain. RESPIRATORY: No cough, hemoptysis or pleuritic chest pain. CARDIOVASCULAR: Positive for chest pain. No palpitations or peripheral edema. GASTROINTESTINAL: No nausea, vomiting, diarrhea, constipation or abdominal pain. GENITOURINARY: No dysuria, frequency or flank pain although urinalysis was done and does show positive nitrites. That was done this morning. She has not received any antibiotics yet. SKIN: No rashes, lesions or wounds. ENDOCRINE: No polydipsia, polyuria or polyphagia. No heat or cold intolerance. NEUROLOGIC: Positive for syncope. No paresthesias or seizures. PHYSICAL EXAMINATION: VITAL SIGNS: Blood pressure 111/71. Heart rate 65. Respiratory rate 18. Temperature 97.6. Oxygen saturation 96%. GENERAL: Ms. Bernard is a 74-year-old female who is in no active distress currently. NEUROLOGIC: The patient is alert and oriented. LUNGS: Clear to auscultation bilaterally. CARDIOVASCULAR: Regular rate and rhythm. Normal S1, S2. ABDOMEN: Soft. Positive bowel sounds. GENITOURINARY: Deferred. EXTREMITIES: Lower extremities with no edema. LABORATORY: Labs are as discussed in history of present illness. RADIOLOGY: Chest x-ray with no cardiopulmonary process acutely occurring. ASSESSMENT: 1. Syncopal episode. 2. Chest pain with an elevated troponin of 0.11 this morning. 3. Coronary artery disease with most recent stent in May by Dr. Ellison. 4. Acute kidney injury. 5. Dehydration. 6. Diabetes mellitus, type 2. 7. Hypokalemia. PLAN: At this time, the patient will be transferred to [facility] with Dr. Ellison to consult. She is not having any chest pain. EKG is not showing any acute changes. She is already on aspirin and Plavix. I will get her a dose of Rocephin for the positive nitrites in the urine pending her transfer. They hypokalemia is resolved after IV fluids with potassium. #[id number] [facility]
[2019-09-23] MEDS: VENLAFAXINE HCL TAB 75 MG TAB PO SCH (08:59)
[2019-09-23] MEDS ORDERED: traMADol HCL 50 MG TAB PO SCH (09:00)
[2019-09-23] MEDS: glipiZIDE EXTENDED REL (XL) 2.5 MG TAB PO SCH (09:00)
[2019-09-23] MEDS: amLODIPine BESYLATE 5 MG TAB PO SCH (09:00)
[2019-09-23] MEDS: NON-FORMULARY MEDICATION 1 EA MIS (Sitagliptin Phosphate [Januvia] 100 MG) PO SCH (09:00)
[2019-09-23] MEDS: CARVEDILOL 12.5 MG TAB PO SCH (09:00)
[2019-09-23] MEDS: ASPIRIN (ENTERIC COATED) 81 MG TAB PO SCH (09:00)
[2019-09-23] MEDS: GABAPENTIN 300 MG CAP PO SCH (09:00)
[2019-09-23] MEDS: POTASSIUM CHLORIDE 10 MEQ TAB PO SCH (09:00)
[2019-09-23] MEDS ORDERED: NITROGLYCERIN 0.4 MG 25 EA TAB SL SCH (09:00)
[2019-09-23] MEDS: LOSARTAN POTASSIUM 100 MG TAB PO SCH (09:00)
[2019-09-23] MEDS: NON-FORMULARY MEDICATION 1 EA MIS (Metformin Hcl [Glucophage] 1,000 MG) PO SCH (09:00)
[2019-09-23] MEDS: cefTRIAXone SODIUM 1 GM in SODIUM CHL 0.9% 50ML MIN-BAG+ 50 ML IVPB SCH (09:01)
[2019-09-23] MEDS: NON-FORMULARY MEDICATION 1 EA MIS (Levothyroxine Sodium [Synthroid] 150 MCG) PO SCH (09:01)
[2019-09-23] MEDS: NITROGLYCERIN 0.4 MG/HR PATCH TOP SCH (09:43)
[2019-09-23 10:49] VITALS: BP 138/79; O2SAT 95
[2019-09-23] MEDS ORDERED: REMOVE OLD PATCH TOP SCH (21:00)
[2019-09-23] MEDS ORDERED: metFORMIN HCL 500 MG TAB PO SCH (21:00)
[2019-09-23] MEDS ORDERED: ATORVASTATIN 20 MG TAB PO SCH (21:00)
[2019-09-23] MEDS ORDERED: diazePAM 5 MG TAB PO SCH (21:00)
[2019-09-23] MEDS ORDERED: NON-FORMULARY MEDICATION 1 EA MIS (Atorvastatin Calcium [Lipitor] 40 MG) PO SCH (21:00)
[2019-09-23] MEDS ORDERED: MIRTAZAPINE 15 MG TAB PO SCH (21:00)
[2019-09-23] MEDS ORDERED: CLOPIDOGREL 75 MG TAB PO SCH (21:00)
[2019-09-24] MEDS ORDERED: LEVOTHYROXINE SODIUM 0.075 MG TAB PO NR (06:30)
[2019-09-24] MEDS ORDERED: SITagliptin 50 MG TAB PO SCH (09:00)
== END 2019-09-23 09:45 | disposition short-term general hospital (02) ==
LOC: ER 17:55 → MS 23:36
PROVIDERS: ADMIT Nurse Practitioner; ATTEND Nurse Practitioner
DX: R07.89 Other chest pain (principal); R74.8 Abnormal levels of other serum enzymes; R55 Syncope and collapse; I25.10 Atherosclerotic heart disease of native coronary artery without angina pectoris; N17.9 Acute kidney failure, unspecified; E86.0 Dehydration; E11.9 Type 2 diabetes mellitus without complications; E87.6 Hypokalemia; I95.9 Hypotension, unspecified; R10.84 Generalized abdominal pain; R19.7 Diarrhea, unspecified; I10 Essential (primary) hypertension; E03.9 Hypothyroidism, unspecified; E78.5 Hyperlipidemia, unspecified; Z95.5 Presence of coronary angioplasty implant and graft; Z79.02 Long term (current) use of antithrombotics/antiplatelets; Z79.82 Long term (current) use of aspirin; Z79.84 Long term (current) use of oral hypoglycemic drugs; Z79.890 Hormone replacement therapy; Z79.899 Other long term (current) drug therapy; Z88.0 Allergy status to penicillin; Z88.6 Allergy status to analgesic agent; Z82.49 Family history of ischemic heart disease and other diseases of the circulatory system; Z96.653 Presence of artificial knee joint, bilateral; Z85.3 Personal history of malignant neoplasm of breast; Z90.13 Acquired absence of bilateral breasts and nipples; Z90.49 Acquired absence of other specified parts of digestive tract; Z90.710 Acquired absence of both cervix and uterus
CPT/HCPCS: 96361; 96374; 96375; J0696; J2405; J7030 ×3; J3480 ×2; J7050; 80048; 80053; 87086; 82948; 36415; 87077; 87186; 81001; 85025 ×2; 83690; 83735; 84443; 84484 ×3; 36416; 83605; 71045; 74176; 99285; 93005 ×3; G0378

== ENCOUNTER → 2020-10-04 | Outpatient (CLI) | payer MEDICARE | LOC: HHH 10:27 | PROVIDERS: ATTEND Internal Medicine | DX: E11.65 Type 2 diabetes mellitus with hyperglycemia (principal) ==